=== PATIENT | female | born 1950 | race American Indian/Alaskan Native ===

== ENCOUNTER 2017-04-25 09:45 | Outpatient (CLI) | payer MEDICARE ==
--- NOTE | 2017-04-25 12:56 | Cat Scan Report ---
CT CHEST WITHOUT CONTRAST: HISTORY: Pulmonary nodule. TECHNIQUE: Helical CT with sagittal and coronal reformatted images. FINDINGS: No comparison at this facility. Previous left mastectomy changes are suspected. No recurrent chest wall mass or adenopathy is appreciated. There is volume loss and increased interstitial markings in the left apical region. These probably represent radiation changes. The lungs are clear and well aerated otherwise. No suspicious nodule or mass. No infiltrate, pleural effusion or pneumothorax. Heart and mediastinal structures are within normal limits. No mediastinal adenopathy is detected. The bony structures are intact. No lytic or blastic lesion. Limited images of the upper abdomen demonstrate at least one calcified gallstone measuring up to 1 cm. IMPRESSION: Assumed radiation changes in the left upper lobe. No suspicious pulmonary nodule or mass is appreciated. Gallstone. Left mastectomy changes.
== END 2017-04-25 09:46 | disposition home or self-care (01) ==
LOC: CT 09:45
PROVIDERS: ATTEND Specialist
DX: R91.1 Solitary pulmonary nodule (principal); K80.20 Calculus of gallbladder without cholecystitis without obstruction; Z90.12 Acquired absence of left breast and nipple
CPT/HCPCS: 71250